=== PATIENT | female | born 1990 | race Caucasian/White ===

== ENCOUNTER → 2021-11-01 | Outpatient (CLI) | payer BC ==
[2021-11-01 11:27] LABS: BASO # 0.03 K/mm3 (0.02-0.10); EOS # 0.14 K/mm3 (0.04-0.40); EOS % 1.5 % (1.0-5.0); HEMATOCRIT 40.4 % (37.0-47.0); HEMOGLOBIN 13.7 g/dL (12.5-16.0); LYMPH# 3.26 K/mm3 (1.50-4.00); MEAN CELL VOLUME 81 fl (78-100); MEAN CORPUSCULAR HEMOGLOBIN 28 pg (27-31); MEAN CORPUSCULAR HGB CONC 34 g/dL (33-37); MEAN PLATELET VOLUME 9.6 fl (7.4-10.4); NEU # 5.42 K/mm3 (1.40-6.50); PLATELET COUNT 310 K/mm3 (130-400); RED BLOOD COUNT 4.99 M/mm3 (4.10-5.30); WHITE BLOOD COUNT 9.5 K/mm3 (4.8-10.8)
[2021-11-01 11:35] LABS: ALBUMIN 3.8 g/dL (3.5-5.0)
[2021-11-01 11:36] LABS: POTASSIUM 3.7 mmol/L (3.5-5.1)
[2021-11-01 11:37] LABS: CALCIUM 9.3 mg/dL (8.3-10.5)
[2021-11-01 11:38] LABS: TOTAL PROTEIN 7.5 g/dL (6.4-8.3)
[2021-11-01 11:40] LABS: TOTAL BILIRUBIN 0.5 mg/dL (0.2-1.2)
[2021-11-12 15:00] LABS: ESTRONE (E1) LEVEL 36; FOLLICLE STIMULATING HORMONE 2.2; LUTENIZING HORMONE 1.3; PROGESTERONE 0.1
== END ==
LOC: LAB 11:01
PROVIDERS: Family Medicine
DX: G47.09 Other insomnia (principal); N91.1 Secondary amenorrhea; R53.83 Other fatigue

== ENCOUNTER → 2022-03-24 | Outpatient (CLI) | payer BC | LOC: RAD 08:27 | DX: R05.3 Chronic cough (principal) ==

== ENCOUNTER → 2023-10-19 | Outpatient (CLI) | payer BC ==
[2023-10-19 11:15] LABS: BASO # 0.02 K/mm3 (0.02-0.10); EOS # 0.16 K/mm3 (0.04-0.40); EOS % 2.1 % (1.0-5.0); HEMATOCRIT 44.4 % (37.0-47.0); HEMOGLOBIN 14.7 g/dL (12.5-16.0); LYMPH# 2.52 K/mm3 (1.50-4.00); MEAN CELL VOLUME 81 fl (78-100); MEAN CORPUSCULAR HEMOGLOBIN 27 pg (27-31); MEAN CORPUSCULAR HGB CONC 33 g/dL (33-37); MEAN PLATELET VOLUME 9.3 fl (7.4-10.4); MONO # 0.65 K/mm3 (0.20-0.80); NEU # 4.29 K/mm3 (1.40-6.50); PLATELET COUNT 342 K/mm3 (130-400); RED BLOOD COUNT 5.47 M/mm3 (4.10-5.30); RED CELL DISTRIBUTION WIDTH 12.9 % (11.5-14.5); WHITE BLOOD COUNT 7.7 K/mm3 (4.8-10.8)
[2023-10-19 11:24] LABS: ALBUMIN 4.4 g/dL (3.5-5.0)
[2023-10-19 11:25] LABS: CALCIUM 9.8 mg/dL (8.3-10.5)
[2023-10-19 11:27] LABS: TOTAL PROTEIN 7.9 g/dL (6.4-8.3)
[2023-10-19 11:28] LABS: TOTAL BILIRUBIN 0.6 mg/dL (0.2-1.2)
[2023-10-19 23:04] LABS: CORTISOL RANDOM 9 ug/dL (3-20)
== END ==
LOC: LAB 11:02
PROVIDERS: Family Medicine
DX: E55.9 Vitamin D deficiency, unspecified (principal); I10 Essential (primary) hypertension; E03.9 Hypothyroidism, unspecified; R94.7 Abnormal results of other endocrine function studies